=== PATIENT | female | born 1955 | race Caucasian/White ===

== ENCOUNTER 2017-10-19 07:12 | Inpatient (IN) | payer OTHER ==
[~2017-10-19] VITALS: Ht 170.2 cm; Wt 85.2 kg
[~2017-10-19 07:12] MED LIST: BRIM0.155 RIGHT EYE; CYMB60CA PO; DIAZ10 PO; DORZ2SOL RIGHT EYE; GABA600T PO; LATA0.002 RIGHT EYE; LEVO50TA4 PO; MULT-65 PO; MULT1TAB17 PO; TIZA6CAP3 PO; TRAM50TA PO; TRAZ100T10 PO
[2017-10-19] MEDS ORDERED: GENTAMICIN SULFATE 80 MG/2 ML VIAL ONE (07:34)
[2017-10-19] MEDS ORDERED: SODIUM CHLORIDE 0.9% IV SCH (08:00)
[2017-10-19] MEDS ORDERED: TRANEXAMIC ACID IV SCH (08:00)
[2017-10-19] MEDS ORDERED: ceFAZolin 2 GM PREMIX 50 ML IV SCH (08:00)
[2017-10-19] MEDS ORDERED: LACTATED RINGER'S 1000 ML IV PRN (08:00)
[2017-10-19] MEDS ORDERED: VANCOMYCIN 1000 MG/NS 250 ML (for <70 kg) IV SCH ×2 (08:00)
[2017-10-19] MEDS ORDERED: POVIDONE IODINE 5% (ANTISEPSIS KIT) 4 APPLICATIONS EACH NARE PRN (08:00)
[2017-10-19] MEDS ORDERED: SODIUM CHLORID 0.9% 500 ML IV PRN (08:00)
[2017-10-19] MEDS ORDERED: DEXAMETHASONE SOD PHOS 20 MG/5 ML VIAL IV SCH (08:00)
[2017-10-19] MEDS ORDERED: TRANEXAMIC PERI-ARTICULAR 3,000 MG/NS 100 ML P-ARTICULR SCH ×2 (08:00)
[2017-10-19] MEDS ORDERED: CHLORHEXIDINE GLUCONATE 2 % 1 PACK (2 CLOTHS) TOPICAL PRN (08:00)
[2017-10-19] MEDS ORDERED: POVIDONE IODINE 7.5% SCRUB 118 ML BOTTLE TOPICAL SCH (08:00)
[2017-10-19] MEDS ORDERED: METOPROLOL TARTRATE 25 MG TAB PO PRN (08:00)
[2017-10-19] MEDS ORDERED: ROPIVACAINE PERI-ARTICULAR INJECTION. P-ARTICULR SCH ×5 (08:00)
[2017-10-19] MEDS: SODIUM CHLOR 0.9% 1000 ML INJ 1,000 ML IV SCH ×3 (08:18→22:33)
--- NOTE | 2017-10-19 08:18 | EKG ---
Date Performed: 10/19/2017 Time Performed: 07:57:58 PTAGE: 62 years EKG: Sinus rhythm INDETERMINATE AXIS BORDERLINE ECG NO PREVIOUS TRACING DOCTOR: Solis Tomas Interpretating Date/Time 10/19/2017 08:16:13
[2017-10-19] MEDS ORDERED: HYDR-3288 PO (08:20)
[2017-10-19] MEDS ORDERED: ASPI81CH6 CHEW (08:21)
[2017-10-19] MEDS ORDERED: ENOX30P SQ (08:21)
[2017-10-19] MEDS ORDERED: ONDANSETRON HCL 4 MG/2 ML VIAL IVP PRN (08:30)
[2017-10-19] MEDS ORDERED: ACETAMINOPHEN/HYDROcodone 325 MG/7.5 MG TAB PO PRN (08:30)
[2017-10-19] MEDS ORDERED: Post-op Orders (for Pharmacy) MISC XX ONE (08:30)
[2017-10-19] MEDS ORDERED: SODIUM CHLORIDE 0.9% FLUSH 5 ML FLUSH IVF PRN (08:30)
[2017-10-19] MEDS: GABAPENTIN 300 MG CAP PO SCH ×3 (09:00→17:49)
[2017-10-19] MEDS: LEVOTHYROXINE SODIUM 50 MCG TAB PO SCH (09:00)
[2017-10-19] MEDS: DULoxetine HCl DR 60 MG CAP PO SCH (09:00)
[2017-10-19] MEDS: SODIUM CHLORIDE 0.9% FLUSH 5 ML FLUSH IVF SCH ×2 (09:00→20:59)
[2017-10-19] MEDS: DIAZEPAM 10 MG TAB PO SCH (09:00)
[2017-10-19] MEDS ORDERED: BUPIVACAINE LIPOSOME PF 1.3% 20 ML VIAL ONE (09:05)
[2017-10-19] MEDS ORDERED: PROPOFOL 500 MG/50 ML INJ 0 ML ONE (09:15)
[2017-10-19] MEDS ORDERED: ACETAMINOPHEN 1000 MG/100 ML 0 ML IV ONE (09:15)
--- NOTE | 2017-10-19 11:47 | MP ---
cc: MERRICK ENCISO M.D. DATE OF SURGERY: 10/19/2017 PREOPERATIVE DIAGNOSIS Right knee osteoarthritis. POSTOPERATIVE DIAGNOSIS Right knee osteoarthritis. PROCEDURE Right total knee arthroplasty. SURGEON Dr. Merrick Enciso. WASTE OIL PUMPER Merrick Perla PA-C. ANESTHESIA General with an adductor canal nerve block. ESTIMATED BLOOD LOSS 50 cc. TOURNIQUET TIME 36 minutes at 250 mmHg. COMPLICATIONS None. IMPLANTS USED DePuy Attune, size 6 posterior stabilized femoral component, size 6 rotating platform tibial baseplate, size 6 mm polyethylene tibial insert, size 38 patella. JUSTIFICATION The patient is a 62-year-old female who has had severe progressive pain in regards to the right knee. She has severe disabling pain with standing, walking, ambulation, weightbearing activities and pain at rest. This does interfere with activities of daily living. She has failed greater than three months of nonoperative conservative treatment to include medication, therapy, injections, ambulatory assisted aids, home exercise program, activity modification and weight loss attempts. X-rays of the right knee reveal severe end-stage osteoarthritis with [id number] joint space narrowing, subchondral sclerosis, subchondral cysts, osteophyte formation and varus deformity. The patient was counseled as to the risks, benefits and alternatives to a total knee arthroplasty. The risks were discussed which include but are not limited to anesthesia, bleeding, infection, damage to nerves and blood vessels, pain, stiffness, failure of hardware, blood clots, pulmonary embolism and even . The patient's pain is severe. She favored the benefits over the risks. She did wish to proceed with surgery. PROCEDURE IN DETAIL A written consent was obtained. The patient was identified by name, taken to the operating table and placed supine on the operating table. General anesthesia was administered as well as two grams of IV Ancef and one gram of IV vancomycin. A well-padded tourniquet was placed on the right thigh. The right lower extremity was prepped and draped using isopropyl alcohol, Hibiclens solution and ChloraPrep solution. After a timeout was performed an Esmarch bandage was used to exsanguinate the right lower extremity and tourniquet inflated to 250 mmHg. A longitudinal incision was made over the anterior aspect of the right knee. A medial parapatellar arthrotomy was performed. The patella was everted. A patellar resection guide was used to resect 9 mm of patella. A size 38 mm guide was placed, three drill holes were placed, and the 38 mm trial fit well. Attention was turned to the femur where an intramedullary guide kristy was placed. The distal femoral guide was set to remove 10 mm of distal femur 5 degrees off the anatomic valgus axis alignment. An oscillating saw was used to perform the distal femoral cut. Attention was turned to the tibia where an extramedullary tibial guide was set to resect 5 mm off the lowest portion of the medial tibial plateau. A tibial guide was pinned in place and the tibia cut was performed. A 5 mm spacer block showed full extension. Attention was turned back to the femur where an AP sizing block measured a size 6. The anterior reference 3 degree external rotation guide was used to pin a size [address] The anterior, posterior and chamfer cuts were performed. A size 6 PCL box guide was pinned in place and the PCL was box cut with an oscillating saw. The medial and lateral meniscus remnants were removed as well as bone and soft tissue debris from the posterior portion of the knee. A size 6 tibial baseplate was pinned in place and the tibia was drilled and punched. The trial components were evaluated and the final components cemented in place. With the current components the leg could achieve full extension to 0 degrees and flexion to 140. No evidence of tibial lift-off, varus-valgus balance appeared appropriate and symmetric, and the patella was noted to track centrally. The tourniquet was deflated. Bovie cautery was used for hemostasis. The surgical wound was thoroughly irrigated with sterile saline pulse lavage antibiotic-impregnated solution. The arthrotomy incision was closed with #1 Vicryl suture, the subcutaneous layer with 2-0 Vicryl suture, and the skin was closed with Dermabond. Sterile dressing was applied. The patient tolerated the procedure with no intraoperative complications noted. Merrick Perla, physician graphic design assistant certified, was present during the entire procedure to include patient positioning and the procedure itself. The medical necessity of the physician graphic design assistant was indicated in this case due to the complexity of the procedure. He assisted with appropriate manipulation of the leg and also traction of muscle, tendon, bone and neurovascular structures. He assisted with preparation of bone and also implantation of the prosthetic replacement. MD ISABELA Eason/CORY /11:15 AM /11:30 AM
--- NOTE | 2017-10-19 12:19 | RADRPT ---
EXAM DATE/TIME: 10/19/2017 10:06 [place] COMPARISON: No previous studies available for comparison. INDICATIONS : Right knee prosthesis in operating room. MEDICAL HISTORY : SURGICAL HISTORY : None. ENCOUNTER: Initial ACUITY: 1 day PAIN SCORE: Non-responsive. LOCATION: Right knee FINDINGS: AP and lateral views of the knee following arthroplasty reveals a prosthesis in anatomic alignment. F racture is not appreciated. Surgical drain is evident CONCLUSION: Status post total knee arthroplasty. Pee Romo MD FACR Board Certified Radiologist. This report was verified electronically.
--- NOTE | 2017-10-19 13:05 | PD.CONS ---
HPI Service [facility] Hospitalists Consult Requested By Dr. Mcmanus Reason for Consult medical management Primary Care Physician Dr. Jaisel Onofre Diagnoses: History of Present Illness This is a pleasant 62 year old female patient with a past medical history which includes OA, hypothyroidism, fibromyalgia, glaucoma, FAUSTO followed by Dr. Mccartney outpatient. Patient underwent right total knee arthroplasty 10/19/[address] Mcmanus. We have nguyễn consulted for medical management post-operativly. Patient seen in PACU awake and in good spirits. Patient feels that her RLE is still numb and denies post-op pain at this time. Patient also denies N/V, shortness of breath or chest pain. Patient offers no complaints and reports being in her normal state of health prior to surgery today. Review of Systems Constitutional: DENIES: Fatigue, Fever, Chills Eyes: DENIES: Blurred vision, Diplopia, Vision loss Respiratory: DENIES: Cough, Sputum production, Shortness of breath Cardiovascular: DENIES: Chest pain, Palpitations, Dyspnea on Exertion Gastrointestinal: DENIES: Abdominal pain, Constipation, Diarrhea Neurologic: DENIES: Headache, Localized weakness, Speech Problems Psychiatric: DENIES: Anxiety, Confusion, Depression Past Family Social History Past Medical History OA, hypothyroidism, fibromyalgia, glaucoma, FAUSTO followed by Dr. Mccartney outpatient Past Surgical History EGD, Colonoscopy, eye surgery, carpal tunnel surgery Reported Medications Aspirin Low Dose (Aspirin) 81 Mg Chew 81 Mg CHEW BID 30 Days Lovenox Inj (Enoxaparin Sodium) 30 Mg/0.3 Ml Syr 30 Mg SQ DAILY [place] (Hydrocodone-Acetaminophen) 7.5-325 mg Tab 1-2 Tab PO Q6H PRN Hair, Skin and Nails Softgel (Mv,Iron,Mins/Folic Acid/Biotin) 66.7 Mcg-1,666.7 Mcg Capsule 1 Cap PO DAILY Multi-Vitamin Daily (Multiple Vitamin) 1 Tab Tab 1 Tab PO DAILY Latanoprost Opth Drops (Latanoprost) 0.005% Drops 1 Drop RIGHT EYE HS Refrigerate until opened. Brimonidine Opth Drops (Brimonidine Tartrate) 0.15% Soln 1 Drop RIGHT EYE TID Dorzolamide Opth Drops (Dorzolamide HCl) 2% Soln 1 Drop RIGHT EYE TID Tramadol (Tramadol HCl) 50 Mg Tab 50 Mg PO Q8H PRN Valium (Diazepam) 10 Mg Tab 10 Mg PO DAILY Gabapentin 600 Mg Tab 600 Mg PO TID Levothyroxine (Levothyroxine Sodium) 50 Mcg Tab 50 Mcg PO DAILY Trazodone (Trazodone HCl) 100 Mg Tablet 100 Mg PO HS Tizanidine (Tizanidine HCl) 6 Mg Cap 6 Mg PO QID Cymbalta DR (Duloxetine HCl) 60 Mg Capdr 60 Mg PO DAILY Allergies: Coded Allergies: No Known Allergies (Unverified , 10/19/17) Active Ordered Medications Current Medications Medications (Trade) Dose Ordered Sig/Vern Route Start Time Stop Time Status Last Admin (Betadine 7.5% Scrub) 1 applic ONCE TOPICAL 10/19/17 08:00 10/22/17 07:59 10/19/17 08:00 Cefazolin Sodium/ Dextrose 50 ml @ 100 mls/hr [employer] PULLMAN IV 10/19/17 08:00 10/22/17 07:59 10/19/17 09:18 Vancomycin HCl 1000 mg/Sodium Chloride 250 ml @ 250 mls/hr [employer] CLERK PULLMAN IV 10/19/17 08:00 10/22/17 07:59 10/19/17 09:20 Tranexamic Acid 1278 mg/Sodium Chloride 112.78 ml @ 200 mls/ hr ONCE IV 10/19/17 08:00 10/19/17 15:00 10/19/17 09:52 Ropivacaine 24.63 ml/Ketorolac Tromethamine 30 mg/Epinephrine HCl 0.5 mg/ Clonidine 80 mcg/ Sodium Chloride 100 ml @ 200 mls/hr ONCE P-ARTICULR 10/19/17 08:00 10/19/17 16:00 10/19/17 10:59 Tranexamic Acid 3000 mg/Sodium Chloride 130 ml @ 260 mls/hr ONCE P-ARTICULR 10/19/17 08:00 10/19/17 16:00 10/19/17 10:58 (Decadron Inj) 10 mg [employer] CLERK PULLMAN IV 10/19/17 08:00 10/19/17 16:00 10/19/17 10:01 Lactated Ringer's 1,000 ml @ 30 mls/hr Q24H PRN IV 10/19/17 08:00 10/22/17 07:59 10/19/17 08:00 Sodium Chloride 500 ml @ 30 mls/hr [id number] PRN IV 10/19/17 08:00 10/22/17 07:59 (Lopressor) 25 mg [employer] CLERK PULLMAN PRN PO 10/19/17 08:00 10/22/17 07:59 (Betadine 5% Antisepsis Kit) 1 applic [employer] CLERK PULLMAN PRN EACH NARE 10/19/17 08:00 10/22/17 07:59 10/19/17 08:00 (Chlorhexidine 2% Cloth) 3 pack [employer] PULLMAN PRN TOPICAL 10/19/17 08:00 10/22/17 07:59 10/19/17 07:30 (Valium) 10 mg DAILY PO 10/19/17 09:00 (Cymbalta Dr) 60 mg DAILY PO 10/19/17 09:00 (Neurontin) 600 mg TID PO 10/19/17 09:00 (Synthroid) 50 mcg DAILY PO 10/19/17 09:00 (Zanaflex) 6 mg QID PO 10/19/17 13:00 (Desyrel) 100 mg HS PO 10/19/17 21:00 Sodium Chloride 1,000 ml @ 100 mls/hr Q10H IV 10/19/17 08:18 (NS Flush) 2 ml UNSCH PRN IVF 10/19/17 08:30 (NS Flush) 2 ml BID IVF 10/19/17 09:00 (Lovenox Inj) 30 mg Q24H SQ 10/19/17 08:30 UNV (Morphine Inj) 3 mg Q3H PRN IV PUSH 10/19/17 08:30 (Gresham 7.5-325 Mg) 1 tab Q4H PRN PO 10/19/17 08:30 ([place]am 7.5-325 Mg) 2 tab Q4H PRN PO 10/19/17 08:30 (Theragran M Tab) 1 tab BID PO 10/20/17 21:00 12/19/17 20:59 (Zofran Inj) 4 mg Q6H PRN IVP 10/19/17 08:30 (Colace) 100 mg BID PO 10/20/17 21:00 Family History Father at 89 had hx of CHF and DM Mother at 46 due to suicide Social History ETOH use about 2 alcoholic drinks per week- not on a daily basis Tobacco use- quit smoking in 1987 prior to that had a 10 pack year history Physical Exam Vital Signs Vital Signs Date Time Temp Pulse Resp B/P (MAP) Pulse Ox O2 Delivery O2 Flow Rate FiO2 10/19/17 08:10 98.3 64 16 111/69 (83) 100 Physical Exam GENERAL: This is a well-nourished, well-developed patient, in no apparent distress. SKIN: pot operative dressing dry and intact and right knee immobilizer in place HEAD: Atraumatic. Normocephalic. No temporal or scalp tenderness. EYES:Extraocular motions intact. No scleral icterus. No injection or drainage. CARDIOVASCULAR: Regular rate and rhythm . RESPIRATORY: Clear to auscultation. Breath sounds equal bilaterally. GASTROINTESTINAL: Abdomen soft, non-tender, nondistended. hypoactive bowel sounds MUSCULOSKELETAL: Extremities without clubbing, cyanosis, or edema. No joint tenderness, effusion, or edema noted. No calf tenderness. Negative Homans sign bilaterally. with the exception of postoperative RLE NEUROLOGICAL: Awake and alert. Motor and sensory grossly within normal limits with the exception of postoperative RLE Assessment and Plan Problem List: (1) Primary localized osteoarthrosis, lower leg ICD Codes: M17.10 - Unilateral primary osteoarthritis, unspecified knee Plan: Osteoarthritis right knee S/P right total knee arthroplasty 10/19/[address] Mcmanus pain medication PT Hypothyroidism Continue home Synthroid Generalized anxiety disorder continue home medications DVT prophylaxis with Lovenox per orthopedic surgery (2) Hypothyroidism ICD Codes: E03.9 - Hypothyroidism, unspecified (3) Generalized anxiety disorder ICD Codes: F41.1 - Generalized anxiety disorder Assessment and Plan Patient examined. Assessment and plan formulated with Kimberley White PA-C. I agree with the above. Kimberley White Oct 19, 2017 13:05 Hansel Nunez MD Oct 19, 2017 20:13
[2017-10-19 14:03] VITALS: BP 99/58; PULSE 59; RESP 16; TEMP 95.6; O2SAT 97
[2017-10-19] MEDS: ceFAZolin 1,000 MG/NS 100 ML IV SCH ×4 (14:42→20:58)
[2017-10-19 16:00] VITALS: BP 106/54; PULSE 61; RESP 16; TEMP 97.6; O2SAT 96
[2017-10-19 20:15] VITALS: BP 95/51; PULSE 83; RESP 18; TEMP 96.7; O2SAT 95
[2017-10-19] MEDS ORDERED: traZODone HCL 100 MG TAB PO SCH (21:00)
[2017-10-19] MEDS: ACETAMINOPHEN/HYDROcodone 325 MG/7.5 MG TAB PO PRN (21:02)
[2017-10-19] MEDS ORDERED: ENOXAPARIN SODIUM 30 MG/0.3 ML SYRINGE SQ SCH (23:00)
[2017-10-19 23:39] VITALS: BP 94/56; PULSE 65; RESP 18; TEMP 96.7; O2SAT 95
[2017-10-20] MEDS: ceFAZolin 1,000 MG/NS 100 ML IV SCH ×4 (02:37→09:02)
[2017-10-20] MEDS: MORPHINE SULFATE 4 MG/ML INJ IV PUSH PRN ×2 (02:49→06:27)
[2017-10-20 03:58] VITALS: BP 107/66; PULSE 64; RESP 17; TEMP 96.7; O2SAT 96
[2017-10-20 07:38] LABS: HEMATOCRIT 38.7 % (35.0-46.0); MEAN CELL VOLUME 93.8 FL (80.0-100.0); MEAN CORPUSCULAR HEMOGLOBIN 32.7 PG (27.0-34.0); MEAN CORPUSCULAR HGB CONC 34.8 % (32.0-36.0); PLATELET COUNT 223 TH/MM3 (150-450); RED BLOOD COUNT 4.12 MIL/MM3 (4.00-5.30); RED CELL DISTRIBUTION WIDTH 12.5 % (11.6-17.2); REVIEW FLAG FINAL; WHITE BLOOD COUNT 19.5 TH/MM3 (4.0-11.0)
[2017-10-20 08:00] VITALS: BP 127/65; PULSE 53; RESP 16; TEMP 97.6; O2SAT 96
--- NOTE | 2017-10-20 08:28 | PD.ORT.PN ---
Subjective Post Op Day #: 1 Subjective Remarks pain under control. no complaints. Objective Vitals Vital Signs Date Time Temp Pulse Resp B/P (MAP) Pulse Ox O2 Delivery O2 Flow Rate FiO2 10/20/17 03:58 96.7 64 17 107/66 (80) 96 10/19/17 23:39 96.7 65 18 94/56 (69) 95 10/19/17 20:15 96.7 83 18 95/51 (66) 95 10/19/17 16:00 97.6 61 16 106/54 (71) 96 10/19/17 14:03 95.6 59 16 99/58 (72) 97 10/19/17 13:00 54 16 101/62 (75) 96 Room Air 10/19/17 12:45 58 16 101/58 (72) 96 Room Air 10/19/17 12:30 60 16 106/62 (77) 97 Room Air 10/19/17 12:15 52 16 95/56 (69) 95 Room Air 10/19/17 12:00 52 16 94/58 (70) 95 Room Air 10/19/17 11:45 56 16 95/57 (70) 95 Room Air 10/19/17 11:35 97.4 56 16 89/52 (64) 92 Room Air I/O 10/19/17 10/19/17 10/19/17 10/20/17 10/20/17 10/20/17 07:00 15:00 23:00 07:00 15:00 23:00 Intake Total 1650 ml 820 ml Output Total 1500 ml 650 ml Balance 150 ml 170 ml Intake Oral 720 ml IV Total 50 ml 100 ml Other 1600 ml Output Urine Total 1400 ml 650 ml Estimated Blood Loss 100 ml # Bowel Movements 0 Result Diagram: 10/20/17 0625 Objective Remarks in chair, nad incision no erythema, no drainage neg homans nvi Assessment & Plan Ortho Post Op Day #: 1 Problem List: Assessment and Plan s/p R TKA wbat daily dressing changes lovenox d/c planning home with [facility] and pt - cleared today if does well in PT rx in chart f/up dr. lang 2 weeks Marvin Perla Oct 20, 2017 08:28
--- NOTE | 2017-10-20 08:30 | HHI.DCPOC ---
Discharge Care Plan Diagnosis: (1) Primary localized osteoarthrosis, lower leg Your Health Problems Are: Difficulty with ADL Goals to Promote Your Health * To prevent worsening of your condition and complications * To maintain your health at the optimal level Directions to Meet Your Goals Take your medications as prescribed Follow your dietary instruction Follow activity as directed Keep your appointments as scheduled Take your immunizations and boosters as scheduled If your symptoms worsen call your PCP, if no PCP go to Urgent Care Center or Emergency Room Smoking is Dangerous to Your Health. Avoid second hand smoke Call the 24-hour hour crisis hotline for domestic abuse at Marvin Perla Oct 20, 2017 08:30
--- NOTE | 2017-10-20 08:31 | HHI.FF ---
Face to Face Verification Diagnosis: (1) Primary localized osteoarthrosis, lower leg Physical Therapy Gait training, Safety evaluation, Transfer training, bed to chair Knee: Total knee, Protocol: Right, Full weight bearing Right LE Weight Bearing: WB as tolerated Nursing RN: 3 days/week x 2 weeks Nursing: Nir teaching, Dressing changes Dressing Changes: Daily dressing change I have seen patient Leah Estrella on 10/20/17. My clinical findings support the need for the requested home health care services because: Limited ability to care for self High risk of falls I certify that my clinical findings support that this patient is homebound because: Post-op weakness Unsteady gait/balance Marvin Perla Oct 20, 2017 08:30
[2017-10-20] MEDS ORDERED: CPMMACHINE (08:32)
[2017-10-20] MEDS ORDERED: WALKER WHEELS/F1 MIS (08:32)
[2017-10-20] MEDS ORDERED: COMMODE 3-IN-11 MIS (08:32)
[2017-10-20] MEDS: GABAPENTIN 300 MG CAP PO SCH (08:58)
[2017-10-20] MEDS: LEVOTHYROXINE SODIUM 50 MCG TAB PO SCH (08:58)
[2017-10-20] MEDS: DULoxetine HCl DR 60 MG CAP PO SCH (08:59)
[2017-10-20] MEDS: SODIUM CHLORIDE 0.9% FLUSH 5 ML FLUSH IVF SCH (09:00)
[2017-10-20] MEDS: ACETAMINOPHEN/HYDROcodone 325 MG/7.5 MG TAB PO PRN (09:01)
[2017-10-20] MEDS: DIAZEPAM 10 MG TAB PO SCH (11:00)
[2017-10-20 13:30] VITALS: BP 101/58; PULSE 53; RESP 15
[2017-10-20] MEDS ORDERED: MULTIVITAMINS/MINERALS THERAPEUTIC TAB PO SCH (21:00)
[2017-10-20] MEDS ORDERED: DOCUSATE SODIUM 100 MG CAP PO SCH (21:00)
--- NOTE | 2017-10-21 09:24 | MD ---
cc: MERRICK MCMANUS M.D. ADMISSION DATE: 10/19/2017 DISCHARGE DATE: 10/20/2017 ADMISSION DIAGNOSIS Severe degenerative osteoarthritis right knee DISCHARGE DIAGNOSIS Severe degenerative osteoarthritis right knee HISTORY OF PRESENT ILLNESS Mrs. Estrella is a 62-year-old female who has been a patient of Dr. Merrick Mcmanus at the [facility]. Currently she has been treated for bilateral knee pain, right greater than left for greater than one year duration. She states her right knee pain is currently inhibiting activities of daily living and it is a severe constant aching sensation aggravated by weightbearing activity. She notes she has no alleviating factors. In the past, she has tried medications, bracing, physical therapy home exercises and several corticosteroid injections without long-lasting relief. She does have x-ray evidence of severe degenerative osteoarthritis of the right knee. While in the office, the patient was counseled on her diagnosis and treatment options. The risks, benefits and indications were all discussed. The patient did elect to proceed with surgical intervention to include a right total knee arthroplasty. Date of surgery 10/19/2017, right total knee arthroplasty. Postop after surgery, the patient admitted to [facility] where she will received appropriate medical management, pain control, DVT prophylaxis as well as physical therapy. DISCHARGE Once being discharged from the hospital, the patient is cleared to go home where she will receive home health care and home physical therapy. She is in stable condition. She may weight-bear as tolerated. The patient is to receive daily dressing changes and has been instructed on appropriate wound care management. She has been provided prescriptions for pain medication as well as DVT prophylaxis medication. Patient has also been provided a follow-up appointment approximately two weeks from the date of surgery. She has asked appropriate questions which have been answered. Patient has been discharged. Dictated by ELSY Quintero MD ISABELA Eason/MJ /7:44 AM /9:14 AM
== END 2017-10-20 15:54 | disposition home health service (06) | DRG 470 ==
LOC: HSDI 07:12 → N06B 13:54
PROVIDERS: ADMIT Orthopaedic Surgery Sports Medicine; ATTEND Orthopaedic Surgery Sports Medicine
PROC: 3E0T3BZ Introduction of Anesthetic Agent into Peripheral Nerves and Plexi, Percutaneous Approach (ICD-10-PCS; 2017-10-19)
PROC: 0SRC0J9 Replacement of Right Knee Joint with Synthetic Substitute, Cemented, Open Approach (ICD-10-PCS; principal; 2017-10-19 09:18)
DX: M17.11 Unilateral primary osteoarthritis, right knee (principal); E03.9 Hypothyroidism, unspecified; M79.7 Fibromyalgia; F41.1 Generalized anxiety disorder; H40.9 Unspecified glaucoma; Z87.891 Personal history of nicotine dependence
CPT/HCPCS: 73560; 85027; 86850; 86900; 86901; 93005; 94150; C1776; C9290; J0131; J0690; J0735; J1100; J1580; J1650; J1885; J2270; J2795; J3370; J7030; J7050; J7120; L1830